=== PATIENT | female | born 1970 | race Caucasian/White ===

== ENCOUNTER 2023-01-31 20:04 | Emergency (ER) | payer OTHER ==
[~2023-01-31] VITALS: Ht 160 cm; Wt 65.8 kg
[~2023-01-31 20:04] MED LIST: BEYAZ 28 TABLE1 EACH; PROZAC40 MG; SYNTHROID125 MCG; VOLTAREM 50 MG PO
== END 2023-01-31 22:40 | disposition home or self-care (01) ==
LOC: ER 20:04
DX: S69.81XA Other specified injuries of right wrist, hand and finger(s), initial encounter (principal); W18.39XA Other fall on same level, initial encounter; Y93.89 Activity, other specified; Y92.89 Other specified places as the place of occurrence of the external cause